=== PATIENT | female | born 1995 | race Two or more races ===

== ENCOUNTER → 2025-05-08 | Outpatient (CLI) | payer MEDICAID, SELFPAY ==
--- NOTE | 2025-05-08 15:59 | XR_ITS ---
Examination: PA lateral chest 2 views Technique: Upright PA lateral chest 2 views Date and time: May 08, 2025, 1606 hrs. Indications: Covid infection one month ago with persistent shortness of breath. Findings: Normal heart size. Lungs are clear. The osseous structures are intact. Impression: No active disease.
== END | disposition home or self-care (01) ==
PROVIDERS: PCP Obstetrics & Gynecology; Referring Provider Obstetrics & Gynecology; Visit Provider Obstetrics & Gynecology
DX: R07.9 Chest pain, unspecified (principal); R06.02 Shortness of breath; Z86.16 Personal history of COVID-19
CPT/HCPCS: 71046

== ENCOUNTER → 2025-07-19 | Outpatient (CLI) | payer MEDICAID, SELFPAY ==
--- NOTE | 2025-07-19 16:06 | XR_ITS ---
Examination: Foot, left, 3 views Technique: AP, oblique, lateral views foot, 3 views Date and time of exam: July 19, 2025, 1614 hours INDICATIONS: Left foot pain beginning 3 weeks ago. FINDINGS: Moderate hallux valgus bunion deformity. No fracture or dislocation. No erosive or other significant arthritic change IMPRESSION: Moderate hallux valgus bunion deformity
== END | disposition home or self-care (01) ==
LOC: CDIM 16:01
PROVIDERS: Referring Provider Obstetrics & Gynecology; Visit Provider Obstetrics & Gynecology
DX: M20.12 Hallux valgus (acquired), left foot (principal); M21.612 Bunion of left foot
CPT/HCPCS: 73630